=== PATIENT | male | born 2000 | race Caucasian/White ===

== ENCOUNTER 2021-07-25 14:34 | Emergency (ER) | payer OTHER ==
[2021-07-25 14:53] VITALS: BP 152/79
--- NOTE | 2021-07-25 15:32 | ED Physician Documentation ---
PD HPI LOWER EXT INJURY - Stated complaint Stated Complaint: LT LEG PX - Chief complaint Chief Complaint: Trauma Ext - History obtained from History obtained from: Patient - Additional information Additional information: 5 nights ago he was drinking and tripped and fell down the stairs and has persistent lateral ankle pain. He is able to walk and bear weight with no other injuries, but has pain with weightbearing and flexion and extension of the left ankle. Review of Systems Constitutional: reports: Reviewed and negative Eyes: reports: Reviewed and negative Ears: reports: Reviewed and negative Nose: reports: Reviewed and negative Throat: reports: Reviewed and negative PD PAST MEDICAL HISTORY - Past Medical History Past Medical History: No Cardiovascular: None Respiratory: None Neuro: None Endocrine/Autoimmune: None GI: None : None HEENT: None Psych: None Musculoskeletal: None Derm: None - Past Surgical History Past Surgical History: No - Allergies Allergies/Adverse Reactions: Allergies Allergy/AdvReac Type Severity Reaction Status Date / Time No Known Drug Allergies Allergy Verified 07/25/21 14:53 - Social History Does the pt smoke?: No Smoking Status: Never smoker Does the pt drink ETOH?: Yes Does the pt have substance abuse?: No - Immunizations Immunizations are current?: Yes - POLST Patient has POLST: No PD ED PE NORMAL - Vitals Vital signs reviewed: Yes - General General: Alert and oriented X 3, No acute distress - Extremities Extremities: Other (Tender and swollen over the lateral malleolus with dependent bruising of the foot but there is no foot tenderness on the left and no proximal fibular tenderness. No medial tenderness.) - Neuro Neuro: Alert and oriented X 3, Normal speech Results - Vitals Vitals: Vital Signs - 24 hr 07/25/21 14:49 Temperature 36.5 C Heart Rate 81 Respiratory 16 Rate Blood Pressure 152/79 H O2 Saturation 99 Oxygen O2 Source Room air - Rads (name of study) L ankle XR Radiology: EMP read contemporaneously (STS, no frx) Departure - Departure Disposition: 01 Home, Self Care Clinical Impression: Left ankle sprain Condition: Good Record reviewed to determine appropriate education?: Yes Instructions: ED Sprain Ankle W X Ray Comments: Recheck with your doctor in a week or 2 if not improving. Tylenol or ibuprofen as needed for pain. Return for new or worsening symptoms. Forms: Activity restrictions Discharge Date/Time: 07/25/21 15:43
--- NOTE | 2021-07-25 15:47 | XRAY Report ---
PROCEDURE: Ankle 3 View LT INDICATIONS: Trauma TECHNIQUE: 3 views of the ankle were acquired. COMPARISON: None FINDINGS: Small ankle joint effusion. No radiopaque foreign body. Small ankle joint effusion with soft tissue s welling adjacent to the lateral malleolus. No fracture or dislocation. Ankle mortise is congruent and maintained. IMPRESSION: Small ankle joint effusion with soft tissue swelling adjacent to the lateral malleolus. Findings suggest ankle sprain. No fracture. Reviewed by: Marvin Bobby MD on 07/25/2021 3:46 PM PST Approved by: Marvin Bobby MD on 07/25/2021 3:46 PM PST Station ID: [id number]
== END 2021-07-25 15:43 | disposition home or self-care (01) ==
LOC: ED 14:34
DX: S93.402A Sprain of unspecified ligament of left ankle, initial encounter (principal); W10.9XXA Fall (on) (from) unspecified stairs and steps, initial encounter
CPT/HCPCS: 99282; 99283

== ENCOUNTER 2021-11-19 21:54 | Emergency (ER) | payer OTHER ==
[2021-11-19 22:07] VITALS: BP 138/83
--- NOTE | 2021-11-19 22:32 | ED Physician Documentation ---
PD HPI UPPER EXT INJURY - Stated complaint Stated Complaint: HAND INJ - Chief complaint Chief Complaint: Trauma Ext - History obtained from History obtained from: Patient - History of Present Illness Location: Left, Finger - Additonal information Additional information: Patient is a 21-year-old male with no significant past medical history presenting for evaluation of left Second finger pain after crushing it in an axle while working on a tractor just prior to arrival. His tetanus is up-to-date. He is left-hand dominant. The pain is sharp and throbbing and worse with movement. He did take Tylenol and has been using ice which is helping. He denies pain or injury elsewhere. Review of Systems Constitutional: denies: Fever Cardiac: denies: Chest pain / pressure Respiratory: denies: Dyspnea GI: denies: Abdominal Pain Skin: reports: Laceration (s) Musculoskeletal: reports: Extremity pain Neurologic: denies: Head injury PD PAST MEDICAL HISTORY - Past Medical History Cardiovascular: None Respiratory: None Neuro: None Endocrine/Autoimmune: None GI: None : None HEENT: None Psych: None Musculoskeletal: None Derm: None - Past Surgical History Past Surgical History: No - Present Medications Home Medications: Ambulatory Orders Medication Instructions Recorded Confirmed No Known Home Medications 11/19/21 11/19/21 - Allergies Allergies/Adverse Reactions: Allergies Allergy/AdvReac Type Severity Reaction Status Date / Time No Known Drug Allergies Allergy Verified 07/25/21 14:53 - Social History Does the pt smoke?: No Smoking Status: Never smoker Does the pt drink ETOH?: Yes Does the pt have substance abuse?: No - Immunizations Immunizations are current?: Yes - POLST Patient has POLST: No PD ED PE NORMAL - General General: Alert and oriented X 3, No acute distress, Well developed/nourished - HEENT HEENT: Atraumatic - Respiratory Respiratory: No respiratory distress - Extremities Extremities: Normal ROM s pain, Other (Able to flex and extend fully at all joints). No: No tenderness to palpate - Neuro Neuro: No motor deficit, No sensory deficit PD ED PE EXPANDED - Extremities DARNELL UE/Hands Visual: 1 - tenderness 2 - laceration (superficial skin tear) Results - Vitals Vitals: Vital Signs - 24 hr 11/19/21 21:59 Temperature 37.1 C Heart Rate 93 Respiratory 18 Rate Blood Pressure 138/83 H O2 Saturation 98 Oxygen O2 Source Room air PD MEDICAL DECISION MAKING - ED course Complexity details: reviewed results, re-evaluated patient ED course: Patient with injury to digit of left hand. X-rays negative for fracture dislocation. Has a superficialSkin tear that does not require repair. His tetanus is up-to-date. Patient advised to follow-up with his PCM through the [facility]. Departure - Departure Disposition: Home, Self Care Clinical Impression: Contusion, finger Qualifiers: Encounter type: initial encounter Finger: index finger Damage to nail status: without damage Laterality: left Qualified Code(s): S60.022A - Contusion of left index finger without damage to nail, initial encounter Condition: Stable Instructions: ED Contusion Finger Comments: You have been evaluated for an injury to your left second finger. The preliminary read of the x-ray does not show a fracture or out of place bone. We have applied a splint to the finger to help support it And to help with discomfort that can come from moving it while it heals. Please continue with elevating, icing and using Motrin or Tylenol for pain. We expect that this injury should get better in the next several days.Please follow-up with your primary care doctor if your symptoms are not improving. Discharge Date/Time: 11/19/21 23:22
--- NOTE | 2021-11-20 00:12 | XRAY Report ---
PROCEDURE: Hand 3 View LT INDICATIONS: 2nd finger injury TECHNIQUE: 3 views of the hand acquired. COMPARISON: None. FINDINGS: Bones: No fractures or dislocations. No suspicious bony lesions. Soft tissues: No suspicious soft tissue calcifications. IMPRESSION: 1. No fracture or dislocation. Reviewed by: Chino Villarreal MD on 11/20/2021 12:10 AM PDT Approved by: Chino Villarreal MD on 11/20/2021 12:10 AM PDT Station ID: [id number]
== END 2021-11-19 23:22 | disposition home or self-care (01) ==
LOC: ED 21:54
DX: S61.211A Laceration without foreign body of left index finger without damage to nail, initial encounter (principal); W23.1XXA Caught, crushed, jammed, or pinched between stationary objects, initial encounter; Y93.89 Activity, other specified
CPT/HCPCS: 99282; 99283